=== PATIENT | male | born 1985 | race Caucasian/White ===

== ENCOUNTER 2017-05-03 08:52 | Emergency (ER) | payer OTHER ==
[~2017-05-03] VITALS: Ht 167.6 cm; Wt 88.2 kg
[2017-05-03] MEDS ORDERED: NAPROXEN 250 MG TAB PO ONE (10:00)
--- NOTE | 2017-05-03 10:31 | REP ---
LEFT SHOULDER: Three views of the left shoulder are performed. There is no acute fracture or dislocation. There is moderate narrowing and spurring at the acromioclavicular joint. IMPRESSION: Degenerative changes AC joint. No fracture or dislocation. Signed by Andriy Hilliard MD 05/03/2017 04:24 P
[2017-05-03] MEDS ORDERED: ZANA4TAB PO (11:13)
[2017-05-03] MEDS ORDERED: MOBI7.5T10 PO (11:13)
[2017-05-03 11:24] VITALS: BP 141/76
== END 2017-05-03 11:29 | disposition home or self-care (01) ==
LOC: M ED 09:50
DX: S43.402A Unspecified sprain of left shoulder joint, initial encounter (principal); M19.012 Primary osteoarthritis, left shoulder; X58.XXXA Exposure to other specified factors, initial encounter; Y92.9 Unspecified place or not applicable; Y93.9 Activity, unspecified; Y99.9 Unspecified external cause status

== ENCOUNTER 2019-09-19 22:14 | Emergency (ER) | payer OTHER ==
[~2019-09-19] VITALS: Ht 165.1 cm; Wt 93.2 kg
[~2019-09-19 22:14] MED LIST: MOBI4TAB PO; ZANA4TAB PO
[2019-09-19 22:44] VITALS: BP 146/94
== END 2019-09-19 23:51 | disposition home or self-care (01) ==
LOC: M ED 22:14
DX: H92.02 Otalgia, left ear (principal); J02.9 Acute pharyngitis, unspecified; R05 Cough